=== PATIENT | female | born 1980 | race Two or more races ===

== ENCOUNTER 2025-05-14 17:11 | Emergency (ER) | payer OTHER, SELFPAY ==
[2025-05-14 17:17] VITALS: BP 114/69
--- NOTE | 2025-05-14 19:20 | ED.GENMED ---
History of Present Illness
General
Chief Complaint: Skin Problem
Time Seen by Provider: 05/14/25 19:20
History of Present Illness
History of Present Illness:
FOCUSED PAST MEDICAL HISTORY
- The patient has no significant past medical history.
REVIEW OF OLD RECORDS
- I reviewed records, the patient gave here via spontaneous vaginal delivery in 2013.
Note:
CHIEF COMPLAINT(S)
Rash on forearms, spreading to other parts of the body.
HISTORY OF PRESENT ILLNESS
The patient is a 45-year-old female who presented with a rash that began two to three weeks ago on her forearms. She initially thought it was minor, but over time it has spread and become more bothersome. The patient describes the rash as itchy and
mentioned difficulty sleeping due to the irritation. She saw a dermatology physician molding line assistant (PA) who performed tests and biopsied the affected skin, suspecting a bacterial cause. Though antibiotic therapy was initiated, cultures returned
negative. They also prescribed an antibiotic cream and a steroid cream, both of which she completed with no improvement. Additionally, antihistamines have been used with limited relief. The patient has not yet tried Benadryl. She recently moved
homes, which could have coincided with the onset, but does not know if this is a contributing factor. The dermatology PA suspects a fungal etiology or eczema. The patient also reports a family history of eczema.
PAST MEDICAL AND SURGICAL HISTORY
The patients past medical and surgical history was not explicitly detailed in the discussion.
PHYSICAL EXAM
-General: Well appearing in no distress
-HEENT: Moist oral mucosa
-Neurologic: Excellent strength all extremities, no obvious coordination deficits
-Psychiatric: Appropriate mental status, normal insight and judgement
-Extremities: Nontender, no edema, moves all extremities equally
-Skin: There is rather extensive rash noted that is suggestive of eczema to the bilateral volar forearms and there is also some erythema noted to both ears
Breath sounds are clear and equal
CHRONIC MEDICAL CONDITIONS SIGNIFICANTLY AFFECTING CARE
Chronic conditions affecting care include a suspicion of eczema, given the family history.
SOCIAL DETERMINANTS OF HEALTH
The patient recently moved homes, mentioning differences in water, which she suspects might influence the condition.
PLAN
Administer a dose of 50 mg prednisone in the emergency department and prescribe a tapering course over 10 days. She was counseled on possible side effects, including sleep disturbances, and advised to consider using Benadryl to aid with sleep at
night. Continuation and follow-up with both art objects salesperson and fuse cutter recommended once biopsy results are available.
DIFFERENTIAL DIAGNOSIS
The Differential Diagnosis includes, in no particular order and is not limited to:
- Eczema
- Allergic dermatitis
- Fungal infection
- Bacterial infection
- Psoriasis
- Contact dermatitis
- Urticaria
- Lichen planus
- Lupus rash
- Drug reaction
SUMMARY OF ENCOUNTER
The patient presented with a rash originally treated by dermatology with antibiotics and a steroid cream, neither of which improved the condition. During the emergency department visit, the decision was made to administer a course of oral prednisone
given the suspicion of eczema and spreading nature of the rash. Potential allergens and family history were considered. The treatment plan aimed to reduce inflammation and control symptoms while awaiting further diagnostic clarification from the
biopsy.
DISPOSITION
The patient is discharged with medications and follow-up recommendations.
EMERGENCY TREATMENTS ADMINISTERED
Administered 50 mg prednisone in the emergency department.
FOLLOW-UP INSTRUCTIONS
Follow-up with art objects salesperson for biopsy results and consider seeing an fuse cutter. A specific fuse cutter name, Dr. Doug Gonzales, was mentioned. The patient was encouraged to continue involvement with current dermatology providers and pursue potential
allergy testing.
MEDICATION RECONCILIATION
Administered: Prednisone 50 mg
Prescribed: Tapering course of prednisone over 10 days.
MEDICAL DECISION MAKING
- Complexity of Data Reviewed: Chronic conditions affecting care suspect eczema.
- Data:
Category 1:
Independent review of dermatology assessments and biopsy in process.
Category 2:
Direction for further art objects salesperson and fuse cutter involvement.
- Risk:
Prescription drug management, with steroid use considered due to the chronic and worsening nature of the rash, as well as potential sleep disturbance.
DIAGNOSIS
Suspected Eczema (L30.9)
Await further biopsy confirmation for precise diagnosis.
SUMMARY OF ENCOUNTER
The patient, a 45-year-old female, presented to the emergency department with a spreading rash initially localized to her forearms and progressing to other areas, suspected to be eczema given her family history. Previous treatment with antibiotics
and steroid creams has been unsuccessful. A course of oral prednisone was initiated to manage the symptoms, with a plan to follow up with dermatology and allergy specialists for further diagnostic clarification once biopsy results are available.
PLAN
Administer a course of oral prednisone, starting with a dose in the emergency department, followed by a tapering schedule over 10 days. Stamping Die Try Out Worker on potential side effects, including the recommendation of using diphenhydramine (Benadryl) at night for
sleep. Ensure follow-up with art objects salesperson for biopsy results and consideration of further allergy testing.
FOLLOW-UP INSTRUCTIONS
Follow up with a art objects salesperson for biopsy results and an fuse cutter for potential allergy testing.
MEDICATION RECONCILIATION
Administered: Prednisone 50 mg in the emergency department.
Prescribed: A tapering course of prednisone over 10 days.
MEDICAL DECISION MAKING
-Complexity of Data Reviewed: Chronic conditions affecting care suspected as eczema due to family history. Differential Diagnoses include eczema, allergic dermatitis, fungal infection, bacterial infection, psoriasis, contact dermatitis, urticaria,
lichen planus, lupus rash, and drug reaction.
-Data:
Category 3
Discussion of management with fuse cutter and art objects salesperson for ongoing care and assessment.
-Risk: Prescription medication was prescribed: Prednisone.
CONSIDERATION OF ADMISSION/OBSERVATION
Escalation of care including admission/observation was considered given the complexity and risk of the patients presenting complaint, exam findings, and underlying comorbidities. However, ultimately I feel the patient is safe for outpatient
management with close follow-up. Work-up reassuring, does not reveal any acute life/organ-threatening processes, patients symptoms well controlled upon reevaluation, reexamination is reassuring, vitals are stable, patient agreeable with discharge,
reliable for follow-up.
DIAGNOSIS
Suspected Eczema (ICD-10: L30.9). Await biopsy confirmation for precise diagnosis.
Phy Exam
Physical Exam
Physical Exam:
See HPI
Course
Orders/Labs/Results
Orders:
Orders
05/14/25 19:31
Prednisone [Deltasone] 50 mg PO NOW STA
Vital Signs
Initial and Last Documented VS:
Initial Vital Signs
Temp Pulse Resp BP Pulse Ox
36.8 C 75 16 114/69 98
05/14/25 17:17 05/14/25 17:17 05/14/25 17:17 05/14/25 17:17 05/14/25 17:17
Last Documented Vital Signs
Temp Pulse Resp BP Pulse Ox
36.8 C 75 16 114/69 98
05/14/25 17:17 05/14/25 17:17 05/14/25 17:17 05/14/25 17:17 05/14/25 19:20
*Pulse Oximetry
SaO2: 98
Oxygen Mode of Delivery: Room air
Patient hypoxic: no
*Critical Care Note
Total Time (30-74mins, 75-104mins- exclusive of procedures): Not Applicable
ED Attending Note
-
Portions of this chart may have been created with voice recognition software.� Occasional wrong word or��sound alike� substitutions may have occurred due to the inherent limitations of voice recognition software.
Discharge Plan
Departure
Patient Disposition: Home (Routine Discharge)
Date of Disposition: 05/14/25
Time of Disposition: 19:32
Patient with high blood pressure during this ER visit?: Yes
Discharge Problem:
Allergic reaction
Instructions: Eczema (atopic dermatitis), Skin Rash (DC), BLOOD PRESSURE
Prescriptions:
New
prednisone 10 mg tablet
10 mg PO DIRECTED Qty: 45 0RF
Rx Instructions:
5 tabs at once each day for 3d, 4 tabs for 3d, 3 tabs for 3d, 2 tab for 3d, 1 tab for 3d
No Action
Prenatabs Rx Tablet Tab
1 tab PO DAILY
ibuprofen 600 MG tablet
600 mg PO Q6HPRN PRN (Reason: moderate pain/cramps) Qty: 0 0RF
docusate sodium 100 MG capsule
100 mg PO BID Qty: 0 0RF
Referrals:
Saud Brown MD [Family Provider, Internal Medicine]
Doug Tamez MD [Non-Admitting Privileges, Water Pumper]
Activity Restrictions/Additional Instructions:
Follow-up with art objects salesperson regarding biopsy results. I have given the contact information for a local fuse cutter, Dr. Tamez. Next dose of steroids tomorrow.
PREDNISONE 10m tabs at once each day for 3d, then 4 tabs for 3d, then 3 tabs for 3d, then 2 tab for 3d, then 1 tab for 3d
Interventions
Interventions:
*Risk Screen - Suicide Last Done: 05/14/25 17:17
*General Assessment Last Done: 05/14/25 17:17
Discharge Date and Time
Print Language: [place]
[2025-05-14] MEDS: DELTASONE 50 MG PO (19:41)
== END 2025-05-14 20:10 | disposition home or self-care (01) ==
LOC: EMR 17:11
PROVIDERS: EMERGENCY PHYSICIAN Emergency Medicine; FAMILY PHYSICIAN Internal Medicine
DX: T78.40XA Allergy, unspecified, initial encounter (principal); X58.XXXA Exposure to other specified factors, initial encounter
CPT/HCPCS: 99283

== ENCOUNTER → 2025-07-06 13:08 | Outpatient (REF) | payer OTHER, SELFPAY | LOC: HWRAD 13:08 | PROVIDERS: ATTENDING PHYSICIAN Nurse Practitioner Family; FAMILY PHYSICIAN Internal Medicine | DX: N92.6 Irregular menstruation, unspecified (principal) | CPT/HCPCS: 76856 ==

== ENCOUNTER → 2025-08-29 15:44 | Outpatient (REF) | payer OTHER, SELFPAY | LOC: MRI 3T 15:44 | PROVIDERS: FAMILY PHYSICIAN Internal Medicine | DX: R92.30 Dense breasts, unspecified (principal) | CPT/HCPCS: 77049; A9585 ==